=== PATIENT | female | born 2000 | race Two or more races ===

== ENCOUNTER 2022-11-14 15:55 | Emergency (ER) | payer BC, OTHER ==
[2022-11-14] MEDS ORDERED: Ketorolac 15 MG/ML SDV IVPUSH ONE (16:10)
[2022-11-14] MEDS ORDERED: Sodium Chloride 0.9% 1,000 ML IV ONE (16:10)
[2022-11-14] MEDS ORDERED: Ondansetron 4 MG/2 ML SDV IVPUSH ONE (16:10)
[2022-11-14 16:26] LABS: BASOPHILS ABSOLUTE AUTO 0.03 K/uL (0.00-0.20); BASOPHILS PERCENT AUTO 0.3 % (0.0-2.0); EOSINOPHILS ABSOLUTE AUTO 0.01 K/uL (0.00-0.50); EOSINOPHILS PERCENT AUTO 0.1 % (0.0-5.0); HEMATOCRIT 41.7 % (34.0-46.0); HEMOGLOBIN 14.2 g/dL (11.7-15.5); LYMPHOCYTES ABSOLUTE AUTO 1.03 K/uL (0.50-3.50); LYMPHOCYTES PERCENT AUTO 9.7 % (10.0-50.0); MEAN CORPUSCULAR HGB CONC 34.1 g/dL (31.7-36.0); MEAN CORPUSCULAR VOLUME 82.2 fL (84.0-98.0); MONOCYTES ABSOLUTE AUTO 0.25 K/uL (0.00-1.00); MONOCYTES PERCENT AUTO 2.4 % (2.0-14.0); NEUTROPHILS ABSOLUTE AUTO 9.29 K/uL (1.40-7.00); NEUTROPHILS PERCENT AUTO 87.5 % (45.0-80.0); PLATELET COUNT,PLT 263 K/uL (150-350); RED BLOOD CELL COUNT 5.07 M/uL (3.77-5.09); RED CELL DISTRIBUTION WIDTH 12.8 % (11.2-14.1); WHITE BLOOD CELL COUNT,WBC 10.6 K/uL (4.0-10.2)
[2022-11-14] MEDS ORDERED: Sodium Chloride 0.9% 10 ML Syringe FLUSH PRN (16:34)
[2022-11-14 16:38] LABS: ALANINE AMINOTRANSFERASE,ALT 18 U/L (12-78); ALBUMIN 4.8 g/dL (3.4-5.0); ALKALINE PHOSPHATASE 90 IU/L (46-116); ANION GAP 8.6 meq/L (7-15); ASPARTATE AMNIOTRANSFERASE,AST 14 U/L (15-37); BILIRUBIN TOTAL 0.8 mg/dL (0.2-1.0); BLOOD UREA NITROGEN,BUN 9 mg/dL (7-18); CALCIUM 9.7 mg/dL (8.5-10.1); CARBON DIOXIDE,CO2 26.4 mmol/L (21.0-32.0); CHLORIDE,CL 103 mmol/L (98-107); CREATININE 0.85 mg/dL (0.51-1.17); GLUCOSE RANDOM 104 mg/dL (70-99); POTASSIUM,K 4.1 mmol/L (3.5-5.1); SODIUM,NA 138 mmol/L (136-145)
[2022-11-14 16:43] LABS: ESTIMATED GFR 101 mL/min (>=60)
[2022-11-14] MEDS ORDERED: HYDROmorphone 0.5 MG/0.5 ML Syringe IVPUSH ONE (17:13)
[2022-11-14] MEDS ORDERED: Iopamidol 612 MG/ML 100 ML Bottle IVPUSH STA (17:15)
[2022-11-14 18:43] LABS: APPEARANCE,URINE CLEAR; BILIRUBIN,URINE NEGATIVE (NEGATIVE); COLOR,URINE YELLOW; GLUCOSE,URINE NEGATIVE (NEGATIVE); KETONES,URINE 40 mg/dL (NEGATIVE); LEUKOCYTE ESTERASE,URINE NEGATIVE (NEGATIVE); NITRITE,URINE NEGATIVE (NEGATIVE); OCCULT BLOOD,URINE NEGATIVE (NEGATIVE); PROTEIN,URINE NEGATIVE (NEGATIVE); UROBILINOGEN,URINE 0.2 E.U./dL (0.2-1.0)
== END 2022-11-14 19:30 ==
LOC: LL.ED 15:55
DX: R10.32 Left lower quadrant pain (principal)
CPT/HCPCS: 36415; 74019; 74177; 80053; 81003; 81025; 83605; 85025; 96361; 96374; 96375; 99284; 99285-25; J1170; J1885; J2405; J7030; Q9967